=== PATIENT | male | born 1945 | race Caucasian/White ===

== ENCOUNTER 2019-03-30 21:11 | Inpatient (IN) ==
[2019-03-31] MEDS ORDERED: Naloxone 0.4 MG/ML INJ IVP PRN (00:32)
[2019-03-31] MEDS ORDERED: Ondansetron 4 MG/2 ML VIAL IVP PRN (00:32)
[2019-03-31] MEDS ORDERED: *HR* LORazepam 2 MG/ML VIAL IVP PRN (00:34)
[2019-03-31] MEDS ORDERED: 0.9 % Sodium Chloride 1,000 ML IVC SCH ×2 (00:45→06:30)
[2019-03-31] MEDS ORDERED: Dextrose Gel 15 GM/37.5 ML TUBE PO PRN ×2 (01:18)
[2019-03-31] MEDS ORDERED: *HR* Dextrose 50 % in Water (Syg) 50 ML SYRINGE IVP PRN (01:18)
[2019-03-31] MEDS ORDERED: D5% in Water 1,000 ML IVC PRN (01:18)
--- NOTE | 2019-03-31 01:21 | Internal Med History&Physical ---
Date of Encounter: 03/31/19 Time of Encounter: : Internal Medicine - H&P: HPI Chief complaint: Seizure Admitted From: Emergency Dept Plans for Post Hospital Care: Home History of present illness: Mr. Farias is a 73 year old male with history of coronary artery disease, type 2 diabetes who presents with seizure activity. Patient is lethargic on presentation and does not remember much of the event so history is somewhat limited. Other history is obtained from the medical record. Patient states lasting that he remembered was he was going in to the bathroom. He does not remember the events after this and does not remember being in the emergency department. Per the ER documentation the stated that he generally not been feeling well and had been generalized weakness but had no other complaints. He apparently had a seizure while at home. Then again in the ER he had a short episode of seizure-like activity. Upon arrival he is awake and alert although lethargic. Patient does not have the capacity to have CODE STATUS discussion at this time and no family is present so at this time patient will be kept is full code. Past Med Surg Social Fam HX - Past Medical History Medical history: cancer, coronary artery disease, diabetes, GERD, hyperlipidemia, hypertension, myocardial infarction, thyroid disease, TIA, other Additional medical history: thrombocytopenia, CHF, parkinsons, lung nodules Psychiatric history: no psych history - Past Surgical History Surgical History: cholecystectomy Additional surgical history: left kidney removed, triple by pass, skin lesions, carpal tunnel cardiac stents x 7 - Social History Smoking Status: Former smoker Smokeless Tobacco Status: No Alcohol use: none Drug use: none - Additional Family History Additional family history: Patient unable to provide family history due to altered mental status. Internal Medicine - H&P: Meds Atorvastatin Calcium [Lipitor] 80 mg PO DAILY 01/01/18 [History] Carvedilol [Coreg] 25 mg PO BID 01/01/18 [History] Cholecalciferol (Vitamin D3) [Vitamin D3] 50,000 unit PO SA 01/01/18 [History] Docusate [Colace] 100 mg PO DAILY 01/01/18 [History] Finasteride [Proscar] 5 mg PO DAILY 01/01/18 [History] Hydralazine HCl 50 mg PO TID 01/01/18 [History] Nitroglycerin [Nitrostat] 0.4 mg SL AD PRN 01/01/18 [History] [place]-3/Dha/Epa/Fish Oil [Fish Oil 1,000 mg Softgel] 1 cap PO DAILY 01/01/18 [History] Ranitidine HCl [Zantac 75] 75 mg PO HS 01/01/18 [History] Ipratropium/Albuterol Neb [Duoneb] 3 ml IH Q6H PRN 08/26/18 [History] Calcitriol 0.5 mcg PO DAILY 12/27/18 [History] Isosorbide MONOnitrate [Isosorbide Mononitrate ER] 120 mg PO BID 12/27/18 [Histo ry] Levothyroxine Sodium 100 mcg PO DAILY 12/27/18 [History] Linagliptin [Tradjenta] 5 mg PO DAILY 12/27/18 [History] Ranolazine [Ranexa] 1,000 mg PO BID 12/27/18 [History] Sennosides [Senna] 8.6 mg PO BID 12/27/18 [History] Aspirin Enteric Coated [Aspirin EC] 81 mg PO DAILY #60 tablet. 12/29/18 [Rx] Clopidogrel [Plavix] 75 mg PO DAILY #30 tablet 12/29/18 [Rx] Mirtazapine [Remeron] 15 mg PO HS 02/20/19 [History] Ondansetron HCl [Zofran] 4 mg PO PRN PRN 02/20/19 [History] Allergy/AdvReac Type Severity Reaction Status Date / Time latex Allergy Rash Verified 03/23/19 10:01 ROS unobtainable: due to mental status All Systems PM: A 10-system review of systems was performed and is negative for pertinent find ings except as documented above in the HPI. - Constitutional Vitals: Pulse Resp BP Pulse Ox 58 22 150/71 98 03/31/19 00:25 03/31/19 00:25 03/31/19 00:25 03/31/19 00:25 General appearance: Present: no acute distress Exam: Lethargic, answers questions slowly but will answer questions appropriately. - Head Head exam: Present: normocephalic Additional comments: Abrasion to left ear. - Eye Eye exam: Present: EOMI, PERRL - ENT ENT exam: Present: mucous membranes moist, normal oropharynx - Neck Neck exam general surgery: Present: full ROM. Absent: tenderness - Respiratory Respiratory exam: Present: CTAB. Absent: rales, rhonchi, wheezes - Cardiovascular Cardiovascular exam: Present: RRR. Absent: gallop, rubs, systolic murmur - GI/Abdominal GI/Abdominal exam: Present: normal bowel sounds, soft. Absent: distended, tenderness - Extremities Exam Extremities exam: Present: warm. Absent: pedal edema, tenderness - Neurological Exam Neurological exam: Present: alert, altered, CN II-XII intact, reflexes normal, no focal deficits, strengths equal and symetr throughout (4 out of 5 strength globally). Absent: motor sensory deficit, facial droop, speech deficit - Skin Skin exam: Present: dry, intact, warm - Assessment and Plan (1) Seizure Current Visit: No Status: Acute Assessment and plan: Patient presents with seizure activity at home and then again in the emergency department. Currently lethargic and appears postictal. Etiology is unclear as patient has never had seizures before. Head CT is negative. No focal neurologic deficits. ER did discuss the case with neurology who recommended loading the patient with Keppra which we will continue with Keppra 500 mg twice a day. We will use Ativan IV for any seizure activity. Lactic acid noted to be elevated, likely due to seizure activity. No evidence of infection. Recheck lactate. Seizure precautions. Check EEG and brain MRI in the morning. Consult neurology. (2) Thrombocytopenia Current Visit: No Status: Chronic Assessment and plan: Platelets are 64 presentation. This is chronic per patient has been following with hematology as an outpatient for his pancytopenia. Etiology is unclear. Given his low platelets as well as being on aspirin and Plavix patient is at high risk for bleeding and it is unclear if the patient had his head during his seizure episode. No focal deficits noted at this time and initial head CT was negative, will closely monitor the patient for any signs of decompensation and blood repeat CAT scan if there is a clinical change. We will get brain MRI in the morning which will also evaluate for any signs of hemorrhage. (3) Hypothyroidism (acquired) Current Visit: No Status: Chronic Assessment and plan: TSH normal. Restart levothyroxine when mental status improves and does confirmed by pharmacy. (4) CKD (chronic kidney disease) stage 3, GFR 30-59 ml/min Current Visit: No Status: Chronic Assessment and plan: Creatinine 1.99 on presentation which is baseline for patient. Continue monitor creatinine. (5) CAD (coronary artery disease) Current Visit: No Status: Chronic Assessment and plan: No evidence of active chest pain. Continue home medications when confirmed by pharmacy. Qualifiers: Coronary Disease-Associated Artery/Lesion type: bypass graft, autologous vein Associated angina: without angina Qualified Code(s): I25.810 - Atherosclerosis of coronary artery bypass graft(s) without angina pectoris (6) DVT prophylaxis Current Visit: No Status: Acute Assessment and plan: Heparin 5000 units subcutaneous twice a day. - Time Spent With Patient Total time spent is greater than 50% in coordination of care (as documented) at patient's floor/unit and/or counseling patient:
[2019-03-31] MEDS ORDERED: Insulin LISPRO 300 UNITS/3 ML VIAL SQ SCH (06:00)
[2019-03-31] MEDS ORDERED: *HR* Heparin 5,000 UNIT/ML VIAL SQ SCH (06:00)
[2019-03-31 06:10] LABS: Immature Granulocytes % 0.3 % (0-4)
[2019-03-31 06:12] LABS: Basophils % 0.3 %; Eosinophils # 0.1 K/mcL (0.0-0.6); Eosinophils % 1.9 %; Hematocrit 28.8 % (37.5-50.1); Hemoglobin 9.2 g/dL (12.9-16.9); Immature Platelets 2.8 % (1.1-6.1); Lymphocytes % 27.8 %; Mean Corpuscular HGB Conc 31.9 g/dL (31.6-35.5); Mean Corpuscular Hemoglobin 29.2 pg (28.0-33.3); Mean Corpuscular Volume 91.4 fL (83.0-100.0); Mean Platelet Volume 10.4 fL (9.4-12.4); Monocytes # 0.3 K/mcL (0.0-1.3); Monocytes % 8.4 %; Neutrophils # 2.3 K/mcL (1.6-8.9); Red Blood Count 3.15 M/mcL (4.19-5.50); Red Cell Distribution Width 16.1 % (11.5-14.5); Segmented Neutrophils % 61.3 %; White Blood Count 3.7 K/mcL (4.3-11.1)
[2019-03-31 06:25] LABS: Calcium 8.5 mg/dL (8.6-10.3); Magnesium 1.5 mg/dL (1.6-2.6); Platelet Count 60 K/mcL (140-400); Potassium 4.1 mEq/L (3.5-5.1)
[2019-03-31 06:32] LABS: INR 1.2; Prothrombin Time 13.8 Seconds (9.4-12.1)
[2019-03-31 06:36] LABS: Thyroid Stimulating Hormone 0.649 mcIU/mL (0.340-5.600)
[2019-03-31] MEDS: Insulin LISPRO 300 UNITS/3 ML VIAL SQ SCH ×4 (08:46→21:48)
--- NOTE | 2019-03-31 10:47 | Event Note ---
Date of Encounter: 03/31/19 Time of Encounter: 10:45 Patient was examined and seen. Family at bedside. Slight higher blood pressure noticed. His start IV fluid. Close monitoring of blood pressure. Review the lab with magnesium replacement. MRI EEG pending. Consulted neurologist- awaiting for opinion. No active seizure since admission.
--- NOTE | 2019-03-31 17:18 | Neurology - Consult Note ---
Date of Encounter: 03/31/19 Time of Encounter: 13:00 Assessment and Plan (1) Seizure Current Visit: No Status: Acute Patient with multiple medical and neurological problems notably Parkinson disease and CKD, HTN who developed two episodes of shaking like activity, not associated with tongue biting, urinary incontinence and the description of his episodes suggest possible shaking spells of non-epileptic events, although patient was observed to have postictal confusion and drowsiness after the events. The shaking activities involve all extremities but lasted few minutes in duration but the patient was observed to be moaning throughout the event. Fadi rivas also has been feeling ill since the last few months due to ongoing multiple medical conditions. MRI of brain showed no acute intracranial abnormality. At this time, i discussed with the medical team and i would suggest not to initiate antiepileptic therapy at this time. will watch him over night and if he stays stable then would not start antiepilpetic therapy and if he develops seizure like activity again then will consider Depakote for him. If he stays in the hospital we will obtain rou oscar EEG in Tuesday. Please continue medical and supportive care (2) Difficulty walking Current Visit: Yes Status: Acute This appears to be a separate issue that the patient has requested for a neurology consultation. Patient has a diagnosis of Parkinson disease and had been treated with dopa therapy for few years at around 2011 and after. He is no longer on Dopa therapy and per his that his tremors had resolved. Currently i saw no typical features of Parkinson disease, in particular, he does not have rest tremors, initially during the examination he has no muscle rigidity at all although he has been having problems walking this may be related to his general medical conditions such as his CHF, and he does have preserved DTRs and another possibility would cervical disc disease causing myelopathy. Therefore i would recommend obtaining an MRI of cervical spine to evaluate for the possibility. Eventually patient may follow up with me in the next few weeks once his medical conditions improve History of Present Illness Chief complaint: Seizure like activity, generalized weakness HPI: Mr. Farias is a 73 year old male with PMH significant for CKD, hypothyroidism, HTN, GERD, anemia, thrombocytopenia, CAD, CHF, s/p PTCA, Parkinson disease who developed one episode of shaking activity at home and then another one in the ER. Patient is interviewed in the presence of his . states that the patient has been feeling weakness since the last few months. He has been having some stomach upset lately and has been seeing GI specialist and was actually referred to me for evaluation for leg weakness and difficulty walking. He does have history of Parkinson disease for tremors and used to take Sinemet for his tremors, which somehow resolved per his . Patient has been experiencing some leg weakness and he can walk short distances and he uses a walker to walk. Then on the day of admission he developed an episode of arms and legs shaking activity and he was moaning throughout the shaking which lasted about 5 minutes. states that during the shaking episode he was not responding but moaning. She states that she was not sure wh ether this would a seizure or not. Patient has no recollection of the event. No tongue biting or urinary incontinence was reported. Then in the ER he was observed to have another similar episode. It was reported that after the shaking event he was 'postictal'. Patient does not have any tremors. He has significant muscle rigidity. He admits that he feels weak. Initial CT of head showed no acute intracranial abnormaltiy. Subsequently he completed MRI of brain without contrast which showed no acute intracranial abnormality. Past Med Surg Social Fam HX - Past Medical History Medical history: cancer, coronary artery disease, diabetes, GERD, hyperlipidemia, hypertension, myocardial infarction, thyroid disease, TIA, other Additional medical history: thrombocytopenia, CHF, parkinsons, lung nodules Psychiatric history: no psych history - Past Surgical History Surgical History: cholecystectomy Additional surgical history: left kidney removed, triple by pass, skin lesions, carpal tunnel cardiac stents x 7 - Social History Smoking Status: Former smoker Smokeless Tobacco Status: No Alcohol use: none Drug use: none - Family History Mother Age at : 84 (old age) Father Age at : 60 Cause of : heart attack Medications and Allergies Atorvastatin Calcium [Lipitor] 80 mg PO DAILY 01/01/18 [History] Carvedilol [Coreg] 25 mg PO BID 01/01/18 [History] Cholecalciferol (Vitamin D3) [Vitamin D3] 50,000 unit PO SA 01/01/18 [History] Docusate [Colace] 100 mg PO DAILY 01/01/18 [History] Finasteride [Proscar] 5 mg PO DAILY 01/01/18 [History] Hydralazine HCl 50 mg PO TID 01/01/18 [History] Nitroglycerin [Nitrostat] 0.4 mg SL AD PRN 01/01/18 [History] [place]-3/Dha/Epa/Fish Oil [Fish Oil 1,000 mg Softgel] 1 cap PO DAILY 01/01/18 [History] Ranitidine HCl [Zantac 75] 75 mg PO HS 01/01/18 [History] Ipratropium/Albuterol Neb [Duoneb] 3 ml IH Q6H PRN 08/26/18 [History] Calcitriol 0.5 mcg PO DAILY 12/27/18 [History] Isosorbide MONOnitrate [Isosorbide Mononitrate ER] 120 mg PO BID 12/27/18 [History] Levothyroxine Sodium 100 mcg PO DAILY 12/27/18 [History] Linagliptin [Tradjenta] 5 mg PO DAILY 12/27/18 [History] Ranolazine [Ranexa] 1,000 mg PO BID 12/27/18 [History] Sennosides [Senna] 8.6 mg PO BID 12/27/18 [History] Aspirin Enteric Coated [Aspirin EC] 81 mg PO DAILY #60 tablet. 12/29/18 [Rx] Clopidogrel [Plavix] 75 mg PO DAILY #30 tablet 12/29/18 [Rx] Mirtazapine [Remeron] 15 mg PO HS 02/20/19 [History] Ondansetron HCl [Zofran] 4 mg PO PRN PRN 02/20/19 [History] Allergy/AdvReac Type Severity Reaction Status Date / Time latex Allergy Rash Verified 03/23/19 10:01 All Systems: The remainder of the systems were reviewed and are negative - Constitutional Constitutional ROS IM: anorexia (yes), chills (no), daytime sleepiness (no), fatigue (yes), fever(s) (no), frequent falls (no), headache(s) (no), weakness (yes) - Nose, Mouth, Throat Nose, mouth and throat: abnormal hearing (no), dysphagia (no) - Cardiovascular Cardiovascular ROS IM: chest pain (no), chest pain at rest (no), chest pain with activity (no), claudication (no), diaphoresis (no) - Respiratory Respiratory IM: cough (no), dyspnea (no), hemoptysis (no) - Gastrointestinal Gastrointestinal: abdominal pain (yes), change in bowel habits (yes), dyspepsia (yes) - Genitourinary Genitourinary ROS: difficulty urinating (no), difficulty voiding (no) - Musculoskeletal Musculoskeletal ROS IM: abnormal gait (yes) - Neurological Neurological ROS: abnormal gait (yes, uses a cane to walk. ), abnormal hearing (no), abnormal movements (no), abnormal speech (no), behavioral changes (no), headache(s) (no) - Psychiatric Psychiatric general PM: auditory hallucinations (no) Physical Examination - Vital Signs Vital Signs: Initial Vital Signs Pulse Resp BP Pulse Ox 58 22 150/71 98 03/31/19 00:25 03/31/19 00:25 03/31/19 00:25 03/31/19 00:25 - Constitutional General appearance: chronically ill - Neurologic Sensorimotor examination: other (Grossly intact) Motor examination - right side: 4/5: deltoids, biceps, triceps, wrist flexion, wrist extension, fire protection equipment technician, hip flexors, tibialis Anterior, quadriceps, toe extension (EHL), plantarflexion Motor examination - left side: 4/5: deltoids, biceps, triceps, wrist flexion, wrist extension, hip flexors, fire protection equipment technician, quadriceps, tibialis Anterior, toe extension (EHL), plantarflexion Detailed sensory examination: other (Grossly intact) Posture: other (None) Reflex and gait examination: other (Gait not tested due to patient being rather weak) Reflexes: Biceps: 2+, Triceps: 2+, Brachioradialis: 2+, Patella: 2+, Achilles: 2+ Mental Status Examination: awake, alert, oriented to person, oriented to place, oriented to time, follows commands appropriately, answers questions appropriately, no agnosia, no aphasia, no aproxia Cranial nerve examination: PERRL, EOMI, visual de la fuente intact, corneal reflexes brisk symmetrically, sensory to face intact, mastication intact, no facial asymmetry is present, no dysarthria, hearing is intact symmetrically, soft palate elevates bilaterally upon phonation, gag reflex intact, flexes SCM and trapezius muscles symmetrically with full power, tongue protrudes midline, no atrophy or facial fasiculations present Results - Laboratory Findings CBC and BMP: 03/31/19 05:44 03/31/19 05:44 Abnormal lab findings: Abnormal lab results WBC 3.7 K/mcL (4.3-11.1) L 03/31/19 05:44 RBC 3.15 M/mcL (4.19-5.50) L 03/31/19 05:44 Hgb 9.2 g/dL (12.9-16.9) L 03/31/19 05:44 Hct 28.8 % (37.5-50.1) L 03/31/19 05:44 RDW 16.1 % (11.5-14.5) H 03/31/19 05:44 Plt Count 60 K/mcL (140-400) L 03/31/19 05:44 PT 13.8 Seconds (9.4-12.1) H 03/31/19 05:44 Sodium 133 mEq/L (136-145) L 03/31/19 05:44 Carbon Dioxide 22 mEq/L (23-29) L 03/31/19 05:44 1.75 mg/dL (0.70-1.30) H 03/31/19 05:44 Est GFR ( Amer) 47 (> 60) L 03/31/19 05:44 Est GFR (Non-Af Amer) 39 (> 60) L 03/31/19 05:44 POC Glucose 121 mg/dL (70-99) H 03/31/19 00:07 Calcium 8.5 mg/dL (8.6-10.3) L 03/31/19 05:44 Magnesium 1.5 mg/dL (1.6-2.6) L 03/31/19 05:44 - Diagnostic Findings Additional findings: EXAMINATION: MRI OF THE BRAIN WITHOUT CONTRAST 03/31/2019 10:33 am TECHNIQUE: Multiplanar multisequence MRI of the brain was performed without the administration of intravenous contrast. COMPARISON: None HISTORY: ORDERING SYSTEM PROVIDED HISTORY: Seizure FINDINGS: INTRACRANIAL STRUCTURES/VENTRICLES: There is no acute infarct. No mass effect or midline shift. No evidence of an acute intracranial hemorrhage. The ventricles and sulci are normal in size and configuration. The sellar/suprasellar regions appear unremarkable. The normal signal voids within the major intracranial vessels appear maintained. Areas of white matter abnormality are nonspecific but commonly attributed to chronic microvascular ischemia. The hippocampi have normal signal intensity and morphology. ORBITS: The visualized portion of the orbits demonstrate no acute abnormality. SINUSES: The visualized paranasal sinuses and mastoid air cells are well aerated. BONES/SOFT TISSUES: The bone marrow signal intensity appears normal. The soft tissues demonstrate no acute abnormality. MR/MR head/brain wo con IMPRESSION: No structural brain abnormality. D/ / 03/31/2019 10:57:35 Brad Fuller MD / [email or web address] Interpreting Provider: Brad Fuller MD Consult Discharge Plan - Plan Referrals: Sameer Frank, PLUSH BRUSHER [Primary Care Provider] -
[2019-04-01 03:35] LABS: Basophils % 0.4 %; Eosinophils # 0.1 K/mcL (0.0-0.6); Eosinophils % 3.4 %; Hematocrit 26.7 % (37.5-50.1); Hemoglobin 8.8 g/dL (12.9-16.9); Immature Platelets 2.3 % (1.1-6.1); Lymphocytes # 1.1 K/mcL (0.6-4.6); Mean Corpuscular Hemoglobin 29.1 pg (28.0-33.3); Mean Corpuscular Volume 88.4 fL (83.0-100.0); Mean Platelet Volume 10.7 fL (9.4-12.4); Monocytes # 0.2 K/mcL (0.0-1.3); Monocytes % 8.3 %; Neutrophils # 1.2 K/mcL (1.6-8.9); Red Blood Count 3.02 M/mcL (4.19-5.50); Red Cell Distribution Width 16.1 % (11.5-14.5); Segmented Neutrophils % 45.9 %; White Blood Count 2.6 K/mcL (4.3-11.1)
[2019-04-01 03:37] LABS: Platelet Count 57 K/mcL (140-400)
[2019-04-01 03:52] LABS: Calcium 8.1 mg/dL (8.6-10.3); Potassium 3.9 mEq/L (3.5-5.1)
[2019-04-01] MEDS: Insulin LISPRO 300 UNITS/3 ML VIAL SQ SCH ×4 (07:52→23:24)
[2019-04-01] MEDS ORDERED: Ondansetron ODT 4 MG TAB.RAPDIS PO PRN (12:46)
[2019-04-01] MEDS ORDERED: Ipratropium/Albuterol Neb 3 ML IH PRN (12:46)
[2019-04-01] MEDS ORDERED: Nitroglycerin 0.4 MG TAB.SUBL SL PRN (12:46)
--- NOTE | 2019-04-01 12:47 | Internal Med Progress Note ---
Hospitalist Progress Note - Encounter Date of Encounter: 04/01/19 Time of Encounter: 12:44 - Subjective Interval History: No active seizure since admission. No acute event overnight. Patient complained of generalized weakness and not able to ambulate. Review the lab with trending down white count hemoglobin and platelet. No active bleeding. Reviewed the vitals Patient denies vomiting headache dizziness chest pain short of breath diarrhea urinary complaint - Exam Vitals: Temp Pulse Resp BP Pulse Ox 98.1 F 56 18 162/75 98 04/01/19 07:30 04/01/19 07:30 04/01/19 07:30 04/01/19 07:30 04/01/19 07:30 Exam: General appearance: No acute distress, A&O X 2 Head exam: Atraumatic Eye exam: EOMI, PERRLA ENT exam: Moist oral mucosa Neck nontender, supple Respiratory exam: Clear to auscultation bilaterally Cardiovascular exam: Regular rate and rhythm, no systolic murmur Abdominal exam: Soft, nontender, nondistended, positive bowel sounds Extremities exam: No calf tenderness, no pedal edema Present: Skin-no rash, warm, dry, intact Neurological exam: CN II-XII intact, no focal deficits. No facial droop. slow speech. Lower extremity motor 4 x 5 bilateral. Upper extremity 5 x 5 bilateral - Assessment and Plan (1) Seizure Current Visit: No Status: Acute Assessment and Plan: Patient presents with seizure like activity at home and then again in the emergency department. patient has never had seizures before. Head CT and MRI brain is negative. No focal neurologic deficits. Got evaluated by neurologist who did not advise to initiate antiepileptic therapy at this time but continue seizure precaution and watch overnight. The patient developed seizure-like activity away and then will consider Depakote. Plan for EEG tomorrow morning. Stopped Keppra-concern for pancytopenia. Initial Lactic acid noted to be elevated, likely due to seizure activity. No evidence of infection. Recheck lactate normal. Seizure precautions. (2) Pancytopenia Current Visit: Yes Status: Acute Assessment and Plan: Worsening. Keppra can also cause pancytopenia therefore will hold Keppra- antiseizure is also not advised by his neurologist. No active seizure since admission. Will repeat CBC tomorrow and if further worsening then will consult surgery technician. (3) Hypothyroidism (acquired) Current Visit: No Status: Chronic Assessment and Plan: TSH normal. Started home medicine (4) CKD (chronic kidney disease) stage 3, GFR 30-59 ml/min Current Visit: No Status: Chronic Assessment and Plan: Acute on CK D3. Improving creatinine level. Avoid nephrotoxic drug. Monitor BMP. Follow account auditor on OPD basis (5) CAD (coronary artery disease) Current Visit: No Status: Chronic Assessment and Plan: No evidence of active chest pain. Continue home medicine. Beta bhavik on hold due to low heart rate. Plavix on hold now due to low platelet. Continue aspirin statin nitroglycerin (6) Thrombocytopenia Current Visit: No Status: Chronic Assessment and Plan: Platelets are 64 presentation. This is chronic per patient has been following with hematology as an outpatient for his pancytopenia. Etiology is unclear. Given his low platelets as well as being on aspirin and Plavix patient is at high risk for bleeding . Plavix on hold but continue aspirin. If further troponin platelet then consult surgery technician about opinion for anti-platelet medication. (7) Generalized weakness Current Visit: Yes Status: Acute Assessment and Plan: Most likely due to deconditioning of the body. Difficulty walking but no focal neurological deficit. As per neurologist note,Patient had a diagnosis of Parkinson disease and had been treated with dopa therapy for few years at around 2011 and after. He is no longer on Dopa therapy and per his that his tremors had resolved. Neurologist not convinced for Parkinson disease as active diagnosis. MRI cervical spine ordered to rule out myelopathy. PTOT consultation. yard warehouse worker consultation for discharge plan (8) HTN (hypertension) Current Visit: Yes Status: Acute Assessment and Plan: High blood pressure but low heart rate. Started home medicine hydralazine. Will hold beta bhavik for now. Continue to monitor blood pressure. (9) DVT prophylaxis Current Visit: No Status: Acute Assessment and Plan: With his start heparin due to low platelet. SCDs - Time Spent with Patient Total time spent is greater than 50% in coordination of care (as documented) at patient's floor/unit and/or counseling patient: 25 - 35 minutes Plan of Care Discussed with: patient Internal Medicine: Result - Labs CBC & Chem 7: 04/01/19 02:56 04/01/19 02:56 Labs: Short CBC 04/01/19 Range/Units 02:56 WBC 2.6 L (4.3-11.1) K/mcL Hgb 8.8 L (12.9-16.9) g/dL Hct 26.7 L (37.5-50.1) % Plt Count 57 L (140-400) K/mcL Neutrophils # 1.2 L (1.6-8.9) K/mcL BMP 04/01/19 02:56 Sodium 135 L Potassium 3.9 Chloride 106 Carbon Dioxide 21 L BUN 21 Creatinine 1.66 H Glucose 102 Calcium 8.1 L - ABG Interpretation ABG results: PT/INR, D-dimer PT 13.8 Seconds (9.4-12.1) H 03/31/19 05:44 - Impressions Impressions Cervical Spine MRI 03/31/19 14:39 IMPRESSION: 1. Degenerative changes contribute to minimal spinal canal stenosis at C3-C4. No spinal canal stenosis at the remaining levels. 2. Degenerative changes contribute to multilevel neural foraminal narrowing as described above. 3. No evidence of spondylolisthesis. 4. There is suggestion of partial loss of normal signal void within the right vertebral artery, which can be seen with slow flow versus occlusion. D/ / Eligio Palacio MD / Eligio Palacio MD Interpreting Provider: Eligio Palacio MD - VTE Documentation of Mechanical Device: Intermittent pneumatic compression device Consult Discharge Plan - Plan Referrals: Sameer Frank, [facility]ACH WORKER [Primary Care Provider] - (5) CAD (coronary artery disease) Qualifiers: Coronary Disease-Associated Artery/Lesion type: bypass graft, autologous vein Associated angina: without angina Qualified Code(s): I25.810 - Atherosclerosis of coronary artery bypass graft(s) without angina pectoris (8) HTN (hypertension) Qualifiers: Hypertension type: unspecified Qualified Code(s): I10 - Essential (primary) hypertension
[2019-04-01] MEDS: hydrALAZINE 25 MG TABLET PO SCH ×2 (15:14→20:58)
--- NOTE | 2019-04-01 16:39 | Neurology Progress Note ---
Date of Encounter: 04/01/19 Time of Encounter: 15:00 Assessment and Plan (1) Seizure Current Visit: No Status: Acute Patient with multiple medical and neurological problems notably Parkinson disease and CKD, HTN who developed two episodes of shaking like activity, not associated with tongue biting, urinary incontinence and the description of his episodes suggest possible shaking spells of non-epileptic events, although patient was observed to have postictal confusion and drowsiness after the events. The shaking activities involve all extremities but lasted few minutes in duration but the patient was observed to be moaning throughout the event. Fadi rivas also has been feeling ill since the last few months due to ongoing multiple medical conditions. MRI of brain showed no acute intracranial abnormality. At this time, i discussed with the medical team and i would suggest not to initiate antiepileptic therapy at this time. Apparently he is doing better with medical and supportive and it seems that his clinical status correlates with improvement of renal function. Daughter mentions that the patient have been having fluctuating functions, weakness and confusion usually last few days before improvement and i suspect the symptoms are likely related to medical encephalopathy. As discussed previously if he develops no recurrent seizure like activity i would recommend no antiepileptic therapy If he stays here until tomorrow then i would obtain a routine EEG in the morning. Please continue medical and supportive care (2) Difficulty walking Current Visit: Yes Status: Acute MRI of cervical spine completed and reviewed and it showed no spinal cord pathology. Patient's balance difficulty likely multi factorial in nature. He certainly has no features of typical parkinson disease although he had been taking sinemet in the past. He had tremors but he no longer having them now. Subjective Principal diagnosis: altered mental status and seizure like activity Interval history: Patient seen and examined. He is interviewed in the presence of his and daughter. Both were present when I saw this patient at around 2:30pm. The patient looks much better and had a big smile on his face. He states that he is feeling better and reports no significant neurological discomforts. His and daughter agrees that he is looking much better. He completed MRI of cervical spine which showed no spinal cord pathology. He has no tremors and no muscle rigidity. Daughter went on stating the patient has been like this, like he would be feeling week and confused for few days and then improve. Apparently this has been going since the last few months. His renal function is improved today, in terms of creatinine level. Reports no recurrent seizure overnight. Objective - Constitutional Vitals: Temp Pulse Resp BP Pulse Ox 98.1 F 56 18 162/75 98 04/01/19 07:30 04/01/19 07:30 04/01/19 07:30 04/01/19 07:30 04/01/19 07:30 - Neurological Exam Sensorimotor examination: Present: other (Grossly intact) Motor Examination: Present: grossly full strength in all extremities (He has no tremors and no muscle rigidity. ) Motor examination - right side: 5/5: deltoids, biceps, triceps, wrist flexion, wrist extension, manager data warehousing, hip flexors, tibialis Anterior, quadriceps, toe extension (EHL), plantarflexion Motor examination - left side: 5/5: deltoids, biceps, triceps, wrist flexion, wrist extension, hip flexors, manager data warehousing, quadriceps, tibialis Anterior, toe extension (EHL), plantarflexion Sensation intact: Present: other (Grossly intact) Posture: Present: other (None) Reflex and gait examination: other (Gait not tested) Reflexes: Biceps: 2+, Triceps: 2+, Brachioradialis: 2+, Patella: 2+, Achilles: 2+ Mental Status Examination: Present: awake, alert, oriented to person, oriented to place, oriented to time, follows commands appropriately, answers questions appropriately, no agnosia, no aphasia, no aproxia Cranial nerve examination: Present: PERRL, EOMI, visual de la fuente intact, corneal reflexes brisk symmetrically, sensory to face intact, mastication intact, no facial asymmetry is present, no dysarthria, hearing is intact symmetrically, soft palate elevates bilaterally upon phonation, gag reflex intact, flexes SCM and trapezius muscles symmetrically with full power, tongue protrudes midline, no atrophy or facial fasiculations present - VTE Documentation of Mechanical Device: Intermittent pneumatic compression device Results - Laboratory Findings CBC and BMP: 04/01/19 02:56 04/01/19 02:56 Abnormal lab findings: Abnormal lab results WBC 2.6 K/mcL (4.3-11.1) L 04/01/19 02:56 RBC 3.02 M/mcL (4.19-5.50) L 04/01/19 02:56 Hgb 8.8 g/dL (12.9-16.9) L 04/01/19 02:56 Hct 26.7 % (37.5-50.1) L 04/01/19 02:56 RDW 16.1 % (11.5-14.5) H 04/01/19 02:56 Plt Count 57 K/mcL (140-400) L 04/01/19 02:56 1.2 K/mcL (1.6-8.9) L 04/01/19 02:56 PT 13.8 Seconds (9.4-12.1) H 03/31/19 05:44 Sodium 135 mEq/L (136-145) L 04/01/19 02:56 Carbon Dioxide 21 mEq/L (23-29) L 04/01/19 02:56 1.66 mg/dL (0.70-1.30) H 04/01/19 02:56 Est GFR ( Amer) 50 (> 60) L 04/01/19 02:56 Est GFR (Non-Af Amer) 41 (> 60) L 04/01/19 02:56 POC Glucose 126 mg/dL (70-99) H 03/31/19 20:37 Calcium 8.1 mg/dL (8.6-10.3) L 04/01/19 02:56 Magnesium 1.5 mg/dL (1.6-2.6) L 03/31/19 05:44 Consult Discharge Plan - Plan Referrals: Sameer Frank, MATE RELIEF [Primary Care Provider] -
[2019-04-01] MEDS: Isosorbide MONOnitrate (24 HR) 60 MG TAB.ER.24H PO SCH (20:58)
[2019-04-01] MEDS: Sennosides 8.6 MG TABLET PO SCH (20:59)
[2019-04-01] MEDS: Ranolazine 500 MG TAB.ER.12H PO SCH (20:59)
[2019-04-01] MEDS ORDERED: Famotidine 20 MG TABLET PO SCH (21:00)
[2019-04-02] MEDS: Insulin LISPRO 300 UNITS/3 ML VIAL SQ SCH ×3 (08:58→17:04)
[2019-04-02] MEDS ORDERED: Finasteride 5 MG TABLET PO SCH (09:00)
[2019-04-02] MEDS ORDERED: Aspirin Enteric Coated 81 MG Tablet PO SCH (09:00)
[2019-04-02] MEDS: Isosorbide MONOnitrate (24 HR) 60 MG TAB.ER.24H PO SCH (09:02)
[2019-04-02] MEDS: hydrALAZINE 25 MG TABLET PO SCH ×2 (09:02→17:04)
[2019-04-02] MEDS: Ranolazine 500 MG TAB.ER.12H PO SCH (09:02)
[2019-04-02] MEDS: Sennosides 8.6 MG TABLET PO SCH (09:02)
[2019-04-02 09:35] LABS: Basophils % 0.4 %; Eosinophils # 0.1 K/mcL (0.0-0.6); Eosinophils % 3.3 %; Hematocrit 28.5 % (37.5-50.1); Hemoglobin 9.4 g/dL (12.9-16.9); Immature Granulocytes % 0.4 % (0-4); Lymphocytes # 1.2 K/mcL (0.6-4.6); Lymphocytes % 49.4 %; Mean Corpuscular Hemoglobin 29.4 pg (28.0-33.3); Mean Corpuscular Volume 89.1 fL (83.0-100.0); Mean Platelet Volume 10.5 fL (9.4-12.4); Monocytes # 0.2 K/mcL (0.0-1.3); Monocytes % 9.2 %; Neutrophils # 0.9 K/mcL (1.6-8.9); Segmented Neutrophils % 37.3 %; White Blood Count 2.4 K/mcL (4.3-11.1)
[2019-04-02 09:37] LABS: Platelet Count 67 K/mcL (140-400)
[2019-04-02 10:05] LABS: Calcium 8.7 mg/dL (8.6-10.3); Potassium 4.3 mEq/L (3.5-5.1)
--- NOTE | 2019-04-02 12:02 | EEG/EMG/Oth Biometrics Report ---
EEG Procedure Report Date of procedure: 04/02/19 EEG Procedure: Routine EEG Procedure Note: This EEG was acquired with standard international 10-20 system with EKG recording. The background EEG activity was characterized by the presence of posterior dominant alpha rhythm with the best frequency up to 8.5 Hz. The background activity was reactive to eye openings. Sleep stages were characterized by the presence of background fragmentation, vertex waves, K complexes, and sleep spindles. There are no electrographic seizures identified during this tracing. There are no epileptiform discharges or focal slowing noted during this recording. Photic stimulation produced no abnormalities. Hyperventilation procedure was not performed. EKG tracing showed normal sinus rhythm. Impression: This is essentially a normal awake and asleep EEG. Clinical Correlation: Normal EEGs, however, do not exclude epilepsy. Clinical correlation advised.
--- NOTE | 2019-04-02 12:59 | Discharge Summary ---
- NOTES TO OUTPATIENT PROVIDER Notes to Outpatient Provider: Needs outpatient PT/OT referral Date of Encounter: 04/02/19 Time of Encounter: 12:56 - Discharge Diagnosis (1) Seizure Priority: Primary Status: Acute Hospital course: Dear Doctors, I recently had the opportunity to care for this patient during their recent hospital stay at [facility]. Dino Farias is a 73 M w hx CAD, DM2, CKD3b, who presented at time of admission with seizure-like episode witnessed per his , no incontinence and was apparently moaning but pt had LOC, rhythmic bilateral shaking, and post-ictal period, and upon presentation lactate was elevated. Then again in the ER he had a short episode of seizure-like activity. States this has happened in the past and found to be hypoglycemic, however he was euglycemic on admission. Sodium mildly low at 133. In the hospital, pt underwent neurologic consultation. EEG was unremarkable. Neuro felt this was unlikely to represent a seizure and thus no AEDs were initiated. Glucose remained normal during admission, with no further seizure- like episodes. PT/OT saw patient and felt he would benefit from outpatient PT/OT. Pt will follow up Neuro in clinic. Dx: Possible seizure, lactic acidosis, hyponatremia Pertinent tests/consults: Neuro consult, EEG Follow up: PCP and Neuro, needs outpatient PT/OT Tests pending: none Med changes: - holding coreg as HR 50-60s - holding plavix due to pancytopenia (specifically thrombocytopenia Plt 50-60s) Mental status: awake, fully oriented Code status: Fabrication Inspector spent on discharge: 35 minutes It has been my pleasure participating in this patient's care. Please contact me with any questions or concerns regarding their hospital stay. Sincerely, Helder Trevino MD - Discharge Medications Prescriptions: Continued Calcitriol 0.5 mcg PO DAILY Isosorbide MONOnitrate [Isosorbide Mononitrate ER] 120 mg PO BID Levothyroxine Sodium 100 mcg PO DAILY Linagliptin [Tradjenta] 5 mg PO DAILY Ranolazine [Ranexa] 1,000 mg PO BID Sennosides [Senna] 8.6 mg PO BID Aspirin Enteric Coated [Aspirin EC] 81 mg PO DAILY #60 tablet. Mirtazapine [Remeron] 15 mg PO QAM Ondansetron HCl [Zofran] 4 mg PO Q6HR PRN PRN Reason: Nausea Pantoprazole Sodium 40 mg PO DAILY Nitroglycerin [Nitrostat] 0.4 mg SL AD PRN PRN Reason: Chest Pain Cholecalciferol (Vitamin D3) [Vitamin D3] 50,000 unit PO SA Atorvastatin Calcium [Lipitor] 80 mg PO DAILY Ruby-3/Dha/Epa/Fish Oil [Fish Oil 1,000 mg Softgel] 1 cap PO DAILY Hydralazine HCl 50 mg PO TID Finasteride [Proscar] 5 mg PO DAILY Docusate [Colace] 100 mg PO DAILY Ipratropium/Albuterol Neb [Duoneb] 3 ml IH Q6H PRN PRN Reason: Shortness Of Breath Discontinued Clopidogrel [Plavix] 75 mg PO DAILY #30 tablet Carvedilol [Coreg] 25 mg PO BID Home Medications: Atorvastatin Calcium [Lipitor] 80 mg PO DAILY 01/01/18 [History] Cholecalciferol (Vitamin D3) [Vitamin D3] 50,000 unit PO SA 01/01/18 [History] Docusate [Colace] 100 mg PO DAILY 01/01/18 [History] Finasteride [Proscar] 5 mg PO DAILY 01/01/18 [History] Hydralazine HCl 50 mg PO TID 01/01/18 [History] Nitroglycerin [Nitrostat] 0.4 mg SL AD PRN 01/01/18 [History] Ruby-3/Dha/Epa/Fish Oil [Fish Oil 1,000 mg Softgel] 1 cap PO DAILY 01/01/18 [History] Ipratropium/Albuterol Neb [Duoneb] 3 ml IH Q6H PRN 08/26/18 [History] Calcitriol 0.5 mcg PO DAILY 12/27/18 [History] Isosorbide MONOnitrate [Isosorbide Mononitrate ER] 120 mg PO BID 12/27/18 [History] Levothyroxine Sodium 100 mcg PO DAILY 12/27/18 [History] Linagliptin [Tradjenta] 5 mg PO DAILY 12/27/18 [History] Ranolazine [Ranexa] 1,000 mg PO BID 12/27/18 [History] Sennosides [Senna] 8.6 mg PO BID 12/27/18 [History] Aspirin Enteric Coated [Aspirin EC] 81 mg PO DAILY #60 tablet. 12/29/18 [Rx] Mirtazapine [Remeron] 15 mg PO QAM 02/20/19 [History] Ondansetron HCl [Zofran] 4 mg PO Q6HR PRN 02/20/19 [History] Pantoprazole Sodium 40 mg PO DAILY 04/01/19 [History] Allergies/Adverse Reactions: Allergy/AdvReac Type Severity Reaction Status Date / Time latex Allergy Rash Verified 04/01/19 16:55 Date of admission: 04/01/19 13:07 Primary care physician: Sameer Frank CNP Consults: 03/31/19 00:34 Consult to Neurology [CONS] Routine Consulting Provider: [facility] Reason for Consult: New onset seizure Call Completed: No 03/31/19 18:30 Consult to Occupational Therapy [CONS] Routine Comment: Evaluate, develop and implement POC Reason for Consult: Generalized weakness Does patient have active BEDREST order?: No Is patient medically & hemodynamically stable?: Yes Patient assessed for mobility or mobilized this visit?: No Consult to Physical Therapy [CONS] Routine Comment: Evaluate, develop and implement POC Reason for Consult: Generalized weakness Does patient have active BEDREST order?: No Is patient medically & hemodynamically stable?: Yes Patient assessed for mobility or mobilized this visit?: No Consult to Station Examiner [CONS] Routine Reason for SW Consult: Discharge plan 04/02/19 10:15 Consult to Interpret Exam [CONS] Routine Consulting Provider: Madeleine Marie Consult to Interpret Exam: Interpret EEG - Constitutional Vitals: Temp Pulse Resp BP Pulse Ox 98.1 F 60 17 120/62 97 04/02/19 04:17 04/02/19 11:49 04/02/19 11:49 04/02/19 11:49 04/02/19 11:49 General appearance: Present: no acute distress Exam: General: NAD, good eye contact, well appearing Thoracic: Normal breath sounds b/l, no wheezing or crackles Cardio: Normal S1 and S2, regular rate and rhythm Abdomen: Soft, nontender Extremities: Warm, well perfused. DP pulses 2+ b/l. No edema. Skin: Intact. No rashes, bruises, or ulcers Neuro: Awake, fully oriented. Speech fluent - Patient Status Disposition: Home, Self-Care Condition: Fair Functional capacity at discharge: uses cane/walker Overall status at discharge: patient is progressing back to baseline - Discharge Instructions Follow Up With: Sameer Frank CNP [Primary Care Provider] - (Please call tomorrow to make appt for 5-7 days after discharge.) Madeleine Marie MD [Partnered Physician] - (Please call tomorrow to make appt 3-4 weeks after d/c.) Additional Instructions: Please have Dr. Frank schedule your outpatient PT/OT. - Diet and Activity Activity: resume usual activities as tolerated Diet: advance to your usual diet - VTE Documentation of Mechanical Device: Intermittent pneumatic compression device
[2019-04-02 16:07] VITALS: BP 128/70
[2019-04-07] MEDS ORDERED: Cholecalciferol (D-3) 1,000 UNIT TABLET PO SCH (12:46)
== END 2019-04-02 18:55 | disposition home or self-care (01) | DRG 101 ==
LOC: 2NENU → SUATTDRO 04-01 13:07
PROVIDERS: ADMIT Internal Medicine; ATTEND Internal Medicine

== ENCOUNTER 2019-06-04 11:43 | Observation (INO) ==
[2019-06-04] MEDS ORDERED: Naloxone 0.4 MG/ML INJ IVP PRN (13:35)
--- NOTE | 2019-06-04 13:41 | Internal Med History&Physical ---
Date of Encounter: 06/04/19 Time of Encounter: 15:00 Internal Medicine - H&P: HPI Chief complaint: Witnessed seizures today History of present illness: Mr. Farias is a 74 year old male with pmh of coronary artery disease, diabetes type 2, dyslipidemia, hypertension presenting with complaints of witnessed seizures today. Patient is extremely lethargic on assessment but protecting his airways. He is not able to provide any history but is arousable and follows commands. Spoke with ER at [facility], per his , patient was having staring spells this am and was not responding when she spoke with him and she also noted a new left sided facial droop and that's why she took him to the ER. ER physician reports he had two episode of jerky movements suspicious for seizure activity that lasted about 30 secndas. No antiepileptic meds wee adinistered. EMS reports he also had an other episode of seizure like activity en route to the hospital. He had a CT head at [facility] showing no acute abnormalities. He is being admitted for further management Past Med Surg Social Fam HX - Past Medical History Medical history: cancer, coronary artery disease, diabetes, GERD, hyperlipidemia, hypertension, myocardial infarction, seizures, thyroid disease, TIA, other Additional medical history: thrombocytopenia, CHF, parkinsons, lung nodules Psychiatric history: no psych history - Past Surgical History Surgical History: cholecystectomy Additional surgical history: left kidney removed, triple bypass, skin lesions, carpal tunnel, cardiac stents x 7 - Social History Smoking Status: Former smoker Smokeless Tobacco Status: No Alcohol use: none Drug use: none Internal Medicine - H&P: Meds Atorvastatin Calcium [Lipitor] 80 mg PO DAILY 01/01/18 [History] Cholecalciferol (Vitamin D3) [Vitamin D3] 50,000 unit PO SA 01/01/18 [History] Docusate [Colace] 100 mg PO DAILY 01/01/18 [History] Finasteride [Proscar] 5 mg PO DAILY 01/01/18 [History] Hydralazine HCl 50 mg PO TID 01/01/18 [History] Nitroglycerin [Nitrostat] 0.4 mg SL AD PRN 01/01/18 [History] Isosorbide MONOnitrate [Isosorbide Mononitrate ER] 120 mg PO BID 12/27/18 [History] Levothyroxine Sodium 100 mcg PO DAILY 12/27/18 [History] Linagliptin [Tradjenta] 5 mg PO DAILY 12/27/18 [History] Ranolazine [Ranexa] 1,000 mg PO BID 12/27/18 [History] Sennosides [Senna] 8.6 mg PO BID 12/27/18 [History] Aspirin Enteric Coated [Aspirin EC] 81 mg PO DAILY #60 tablet. 12/29/18 [Rx] Mirtazapine [Remeron] 7.5 mg PO HS 02/20/19 [History] Calcitriol [Rocaltrol] 0.25 mcg PO DAILY 06/04/19 [History] [place]-3/Dha/Epa/Fish Oil [Fish Oil 1,000 mg Softgel] 1 each PO DAILY 06/04/19 [History] Pantoprazole Sodium [Protonix] 40 mg PO HS 06/04/19 [History] Sertraline [Zoloft] 50 mg PO DAILY 06/04/19 [History] Allergy/AdvReac Type Severity Reaction Status Date / Time latex Allergy Rash Verified 06/04/19 10:43 ROS unobtainable: due to mental status All Systems PM: A 10-system review of systems was performed and is negative for pertinent findings except as documented above in the HPI. - Constitutional Exam: Extremely drowsy but arousable - Head Head exam: Present: atraumatic, normocephalic - Eye Eye exam: Present: PERRL, conjuntiva pink, sclera anicteric Pupils: Present: PERRL - Neck Neck exam general surgery: Present: supple, trachea midline. Absent: lymphadenopathy - Respiratory Respiratory exam: Present: CTAB. Absent: accessory muscle use, rales, rhonchi, wheezes - Cardiovascular Cardiovascular exam: Present: RRR, +S1, +S2. Absent: diastolic murmur, gallop, rubs, systolic murmur - GI/Abdominal GI/Abdominal exam: Present: normal bowel sounds, soft, no peritoneal signs. Absent: distended, tenderness - Extremities Exam Extremities exam: Present: warm, radial pulses palpable and symmetrical. Absent: calf tenderness, cyanotic, pedal edema - Neurological Exam Neurological exam: Present: CN II-XII intact, oriented X3, no focal deficits. Absent: pronater drift, facial droop, speech deficit - Skin Skin exam: Present: dry, intact - Assessment and Plan (1) Seizure Current Visit: Yes Status: Acute Assessment and plan: Multiple witnessed episodes of seizure like activity today with jerky movements and postictal state No antiepileptics administered at [facility]. Will load with IV keppra, Obtain MRI brain Neurology consulted and appreciate recs. Start on ativan prn (2) Lactic acidosis Current Visit: Yes Status: Acute Assessment and plan: Possibly secondary to seizures and muscle hypoxia. Low suspicion for sepsis Repeat lactate was 2.4. Will hydrate gently in light of mildly depressed EF (3) CAD (coronary artery disease) Current Visit: Yes Status: Chronic Assessment and plan: Continue aspirin and statin Qualifiers: Coronary Disease-Associated Artery/Lesion type: bypass graft, autologous vein Associated angina: without angina Qualified Code(s): I25.810 - Atherosclerosis of coronary artery bypass graft(s) without angina pectoris (4) Diabetes Current Visit: Yes Status: Chronic Assessment and plan: Continue insulin and monitor fingersticks Qualifiers: Diabetes mellitus type: type 2 Diabetes mellitus terminal supervisor insulin use: without terminal supervisor use Diabetes mellitus complication status: without complication Qualified Code(s): E11.9 - Type 2 diabetes mellitus without co mplications (5) Hypothyroidism (acquired) Current Visit: Yes Status: Chronic Assessment and plan: Continue levothyroxine (6) CKD (chronic kidney disease) stage 3, GFR 30-59 ml/min Current Visit: Yes Status: Chronic Assessment and plan: Gentle hydration and monitor creatinine (7) DVT prophylaxis Current Visit: Yes Status: Acute Assessment and plan: Heparin sc - Time Spent With Patient Total time spent is greater than 50% in coordination of care (as documented) at patient's floor/unit and/or counseling patient:
[2019-06-04] MEDS ORDERED: levETIRAcetam 1,000 MG in 0.9 % Sodium Chloride 100 ML IVPB ONE (13:47)
[2019-06-04] MEDS ORDERED: Nitroglycerin 0.4 MG TAB.SUBL SL PRN (14:24)
--- NOTE | 2019-06-04 14:44 | Neurology - Consult Note ---
<Tyrell Perez - Last Filed: 06/04/19 14:40> Date of Encounter: 06/04/19 Time of Encounter: 14:40 Assessment and Plan (1) Seizure Current Visit: Yes Status: Acute Neurology consult with concerns for seizures Was witnessed to have staring events 2 then found to have tonic-clonic seizure activity today Has had recent similar seizure-like activity with negative workup including negative MRI brain and EEG He is currently not on antiepileptic drugs Also of note the patient is having some left eye ptosis and what appears to be left facial droop. Otherwise he is drowsy and does not follow commands or participate in exam. However, drowsiness may not be true postictal state as patient received 2mg Versed and this may be complicating clinical picture at this time. At this juncture we will continue to evaluate for seizures Given left facial droop and ptosis who also evaluate for acute cerebral ischemia PLAN: MRI brain EEG Continue aspirin and statin drugs Neurological assessments per CVA protocol Seizure precautions Rec cardiac monitoring PRN Ativan for breakthrough seizures Keppra 1000 mg loading dose then Keppra 500 mg twice a day; transition to by mouth Keppra when appropriate -It is unclear at this juncture this is true seizure etiology or nonepileptic events. He has recently had a workup with Dr. Cardoso including MRI of the brain and EEG which were both negative. -However, we will go ahead and start antiepileptic drugs as the patient is having recurrent seizure events Neurology will continue to follow; further recommendations pending w/u History of Present Illness Chief complaint: Seizures HPI: Mr. Farias is a 74 year old male with a PMH of cancer, CAD, DM, GERD, HLD, HTN, [place], hypothyroidism, TIAs and seizures. Presents from an [facility] with concerns for seizures. He has had similar episodes recently dating back to March 2019 where he presented with an unresponsive state and seizure-like activity. MRI at that time was unremarkable. Currently, the patient is drowsy responding to verbal stimulus but is unable to provide any history of present illness. His at the bedside and reports this morning he was having staring spells and was not answering her when she was speaking to him. She is also noticing a left facial droop drooping along the left eye. She brought to the ED for further evaluation. While in the ED he began to have tonic clonic seizure activity and he has been postictal since. Again, he has had spells like this in the past with negative MRI and negative EEG. He is currently not on any antiepileptic drugs. He had CT is not obtained showing no acute intracranial abnormality. A small right mastoid effusion with air-fluid level may be seen with mastoiditis in the appropriate clinical scenario. He had a stable chest x-ray. He is hemodynamically stable and there are no metabolic derangements noted on his chemistry panel. He is being admitted for further evaluation of seizures. Past Med Surg Social Fam HX - Past Medical History Medical history: cancer, coronary artery disease, diabetes, GERD, hyperlipidemia, hypertension, myocardial infarction, seizures, thyroid disease, TIA, other Additional medical history: thrombocytopenia, CHF, parkinsons, lung nodules Psychiatric history: no psych history - Past Surgical History Surgical History: cholecystectomy Additional surgical history: left kidney removed, triple bypass, skin lesions, carpal tunnel, cardiac stents x 7 - Social History Smoking Status: Former smoker Smokeless Tobacco Status: No Alcohol use: none Drug use: none - Additional Family History Additional family history: Patient is drowsy; unable to obtain family history Medications and Allergies Atorvastatin Calcium [Lipitor] 80 mg PO DAILY 01/01/18 [History] Cholecalciferol (Vitamin D3) [Vitamin D3] 50,000 unit PO SA 01/01/18 [History] Docusate [Colace] 100 mg PO DAILY 01/01/18 [History] Finasteride [Proscar] 5 mg PO DAILY 01/01/18 [History] Hydralazine HCl 50 mg PO TID 01/01/18 [History] Nitroglycerin [Nitrostat] 0.4 mg SL AD PRN 01/01/18 [History] Isosorbide MONOnitrate [Isosorbide Mononitrate ER] 120 mg PO BID 12/27/18 [History] Levothyroxine Sodium 100 mcg PO DAILY 12/27/18 [History] Linagliptin [Tradjenta] 5 mg PO DAILY 12/27/18 [History] Ranolazine [Ranexa] 1,000 mg PO BID 12/27/18 [History] Sennosides [Senna] 8.6 mg PO BID 12/27/18 [History] Aspirin Enteric Coated [Aspirin EC] 81 mg PO DAILY #60 tablet. 12/29/18 [Rx] Mirtazapine [Remeron] 7.5 mg PO HS 02/20/19 [History] Calcitriol [Rocaltrol] 0.25 mcg PO DAILY 06/04/19 [History] [place]-3/Dha/Epa/Fish Oil [Fish Oil 1,000 mg Softgel] 1 each PO DAILY 06/04/19 [History] Pantoprazole Sodium [Protonix] 40 mg PO HS 06/04/19 [History] Sertraline [Zoloft] 50 mg PO DAILY 06/04/19 [History] Allergy/AdvReac Type Severity Reaction Status Date / Time latex Allergy Rash Verified 06/04/19 10:43 All Systems: The remainder of the systems were reviewed and are negative Review of Systems: REVIEW OF SYSTEMS GENERAL: Negative for any nausea, vomiting, fevers, chills NEUROLOGIC: Negative for any blurry vision, blind spots, double vision, dyspha charisse, dysarthria, hemiparesis, hemisensory deficits, vertigo, ataxia, paralysis, tingling, numbness, unilateral weakness or numbness/tingling POSITIVE-left facial droop; droop of left eye and mouth specifically. reporting tonic clonic activity this morning. She is also reporting noticing staring spells. PSYCH: NEGATIVE-agitation/irritability, delirium HEENT: Negative for any head trauma, neck trauma, neck stiffness Physical Examination - Vital Signs Vital Signs: Initial Vital Signs Temp Pulse Resp BP Pulse Ox 98.3 F 64 16 147/74 100 06/04/19 13:41 06/04/19 13:41 06/04/19 13:41 06/04/19 13:41 06/04/19 13:41 - Exam Exam: Examination: Neurological exam is completely negative by patient's mental state General Examination: *CONSTITUTIONAL: Drowsy but arousable to verbal stimulus. Disoriented otherwise *GENERAL APPEARANCE OF PATIENT generally ill-appearing elderly male *EYES: pupils equal, round, reactive to light and accommodation, conjunctiva clear without masses or ulcerations, fundi normal. *CARDIOVASCULAR: no peripheral edema, distal temperature normal, dorsalis pedis pulses normal. Refer to vital signs * MUSCULOSKELETAL: *GAIT AND STATION: Deferred *ASSESSMENT OF MUSCLE STRENGTH IN THE UPPER AND LOWER EXTREMITIES moves all 4 extremities spontaneously but is unable to cooperate with exam given his altered mental state. *MUSCLE TONE IN THE UPPER AND LOWER EXTREMITIES normal. No abnormal movements, fasciculations or atrophy identified. Neurological: *ORIENTATION disoriented *ATTENTION AND CONCENTRATION are abnormal and he appears to be in a postictal state *CN II optic fundi were normal, no papilledema noted. *CN III,IV, PERRLA, no doll's eyes. Ptosis of the left eye *CN VII appears to have some droop along left mouth *REFLEXES: deep tendon reflexes were normal and symmetrical in bilateral biceps, triceps and brachioradialis grade 2/4. Absent bilateral patellar and Achilles reflexes. no pathological reflexes were noted Results - Diagnostic Findings Additional findings: CT/CT head/brain wo con IMPRESSION: No acute intracranial abnormality. Small right mastoid effusion with air-fluid level may be seen with mastoiditis in the appropriate clinical scenario. Clinical correlation recommended. Consult Discharge Plan - Plan Referrals: Sameer Frank, VISITOR SERVICES REPRESENTATIVE [Primary Care Provider] - (This office will not let us make follow up appointments until we have a discharge order) <Philippe Sprague - Last Filed: 06/04/19 17:11> Date of Encounter: 06/04/19 Assessment and Plan (1) Seizure Current Visit: Yes Status: Acute I have personally performed a [id number] assessment of the patient and have reviewed the PA/DISTRICT MANAGER MAJOR ACCOUNTS SALES note. My impressions are as follows: As stated above, patient has had episodes of altered mental status and sensorium that could possibly be secondary to seizure activity. However may also be due to nonepileptic seizures or some other nonneurologic etiologies. In any regard MRI scan of the brain has been completed and only reveals mild age-related changes. Does not rest reveal a specific etiology to explain seizure activity. EEG is yet pending. I agree with starting Keppra 1000 mg load, and we will maintain at 500 mg twice a day. Continued neuro checks. Further recommendations will be made pending clinical observation overnight and the result of the EEG. History of Present Illness HPI: The chart was reviewed, the patient was seen and examined independently. The c ase was discussed with the VISITOR SERVICES REPRESENTATIVE. I agree with his assessment of the history of present illness as outlined above. All Systems: The remainder of the systems were reviewed and are negative Review of Systems: The balance of the systems review is negative. Physical Examination - Vital Signs Vital Signs: Initial Vital Signs Temp Pulse Resp BP Pulse Ox 98.3 F 64 16 147/74 100 06/04/19 13:41 06/04/19 13:41 06/04/19 13:41 06/04/19 13:41 06/04/19 13:41 - Exam Exam: I have personally performed a [id number]-[id number] assessment of the patient and have reviewed the PA/DISTRICT MANAGER MAJOR ACCOUNTS SALES note. My impressions are as follows: The chart was reviewed, the patient was seen and examined independently. Case was discussed with the VISITOR SERVICES REPRESENTATIVE. I concur with the neurologic examination as documented above. Results - Laboratory Findings Abnormal lab findings: Abnormal lab results POC Glucose 156 mg/dL (70-99) H 06/04/19 13:43 Lactic Acid 2.4 mmol/L (0.5-2.2) H 06/04/19 14:51
[2019-06-04] MEDS ORDERED: *HR* LORazepam 2 MG/ML VIAL IVP PRN (14:57)
[2019-06-04] MEDS: hydrALAZINE 25 MG TABLET PO SCH ×2 (16:53→21:14)
[2019-06-04] MEDS: 0.9 % Sodium Chloride 1,000 ML IVC SCH (17:00)
[2019-06-04] MEDS ORDERED: 0.9 % Sodium Chloride 1,000 ML ONE (17:23)
[2019-06-04] MEDS: Isosorbide MONOnitrate (24 HR) 60 MG TAB.ER.24H PO SCH (21:14)
[2019-06-04] MEDS: Ranolazine 500 MG TAB.ER.12H PO SCH (21:14)
[2019-06-04] MEDS: Sennosides 8.6 MG TABLET PO SCH (21:14)
[2019-06-05 04:59] LABS: Basophils % 0.2 %; Hemoglobin 9.3 g/dL (12.9-16.9)
[2019-06-05 05:01] LABS: Eosinophils # 0.1 K/mcL (0.0-0.6); Eosinophils % 2.3 %; Hematocrit 28.2 % (37.5-50.1); Immature Granulocytes % 0.2 % (0-4); Immature Platelets 2.6 % (1.1-6.1); Lymphocytes # 1.3 K/mcL (0.6-4.6); Lymphocytes % 29.1 %; Mean Corpuscular Hemoglobin 29.2 pg (28.0-33.3); Mean Corpuscular Volume 88.4 fL (83.0-100.0); Mean Platelet Volume 10.3 fL (9.4-12.4); Monocytes # 0.4 K/mcL (0.0-1.3); Monocytes % 9.6 %; Neutrophils # 2.6 K/mcL (1.6-8.9); Red Blood Count 3.19 M/mcL (4.19-5.50); Red Cell Distribution Width 15.7 % (11.5-14.5); Segmented Neutrophils % 58.6 %; White Blood Count 4.4 K/mcL (4.3-11.1)
[2019-06-05 05:04] LABS: Platelet Count 91 K/mcL (140-400)
[2019-06-05 05:16] LABS: Calcium 8.3 mg/dL (8.6-10.3); Magnesium 1.7 mg/dL (1.6-2.6); Phosphorous 2.5 mg/dL (2.7-4.5); Potassium 4.1 mEq/L (3.5-5.1)
[2019-06-05] MEDS: 0.9 % Sodium Chloride 1,000 ML IVC SCH (06:48)
[2019-06-05] MEDS: Sennosides 8.6 MG TABLET PO SCH (07:26)
[2019-06-05] MEDS: Ranolazine 500 MG TAB.ER.12H PO SCH (07:27)
[2019-06-05] MEDS: hydrALAZINE 25 MG TABLET PO SCH ×2 (07:28→15:30)
[2019-06-05] MEDS: Isosorbide MONOnitrate (24 HR) 60 MG TAB.ER.24H PO SCH (07:28)
[2019-06-05] MEDS ORDERED: Finasteride 5 MG TABLET PO SCH (09:00)
[2019-06-05] MEDS ORDERED: Mirtazapine 15 MG TABLET PO SCH (09:00)
[2019-06-05] MEDS ORDERED: Cholecalciferol (D-3) 1,000 UNIT (25MCG) TABLET PO SCH (09:00)
[2019-06-05] MEDS ORDERED: Aspirin Enteric Coated 81 MG Tablet PO SCH (09:00)
--- NOTE | 2019-06-05 11:03 | Neurology Progress Note ---
<Tyrell Perez J - Last Filed: 06/05/19 11:00> Date of Encounter: 06/05/19 Time of Encounter: 11:00 Assessment and Plan (1) Seizures Status: Acute Seen in f/u for seizures no return of seizure activity since admission Was given keppra 1000mg loading dose yesterday and then 500mg BID; transition to PO when appropriate C/W seizure precautions and PRN ativan F/u with Primary neurologist Dr. Marie at d/c MRI brain with no acute findings EEG pending Patient was asked not to drive until seizure-free for 6 months. Patient was asked not to work in close proximity of machines with moving parts, not to swim unsupervised, not to take tub baths or showers with water accumulation, and not to work at high places. Continue medical and supportive care Subjective Principal diagnosis: seizures Interval history: The chart was reviewed and the patient was seen and examined at the bedside. He is being seen in f/u for suspected seizures. He denies any seizures events overnight and denies any development of neurological deficits overnight. He remains stable. He has just undergone EEG and the results are pending. I discussed MRI findings with the patient and revealed that there are no evidence of acute intrancranial abnormalities. Stable mile chronic small vessel ischemic disease within the periventricular white matter with associate mild cerebral atrophy. He verbalized understanding of our discussion and denies any further questions. Objective - Constitutional Vitals: Temp Pulse Resp BP Pulse Ox 98.2 F 61 18 129/62 99 06/05/19 07:20 06/05/19 07:20 06/05/19 07:20 06/05/19 07:20 06/05/19 07:20 Exam: Examination: General Examination: *CONSTITUTIONAL: Alert and oriented x3, no acute distress *GENERAL APPEARANCE OF PATIENT Elderly male who overall appears healthy and well groomed *EYES: pupils equal, round, reactive to light and accommodation, conjunctiva clear without masses or ulcerations, fundi normal. *CARDIOVASCULAR:no peripheral edema, distal temperature normal, dorsalis pedis pulses normal. Refer to vital signs * MUSCULOSKELETAL: *GAIT AND STATION: Deferred *ASSESSMENT OF MUSCLE STRENGTH IN THE UPPER AND LOWER EXTREMITIES bilateral deltoid, bicep, tricep, boring machine operator horizontal strength, hip flexors ,anterior tibialis, dorsoflexion of the foot 4/5 *MUSCLE TONE IN THE UPPER AND LOWER EXTREMITIES normal. No abnormal movements, fasciculations or atrophy identified. Neurological: *ORIENTATION to person, situation, time and place *LANGUAGE AND FUNCTION no significant aphasia or dysarthia was noted. *ATTENTION AND CONCENTRATION are normal *LANGUAGE FUNCTION no significant aphasia or dysarthia was noted. *FUND OF KNOWLEDGE aware of current events, past history, vocabulary *MENTAL attention span and concentration normal. *CN II optic fundi were normal, no papilledema noted. *CN III,IV, PERRLA extraocular eye movements were full, no nystagmus and no ptosis noted. *CN V shows normal sensation and jaw opens symmetrically. *CN VII shows normal facial movement symmetrically, upper and lower bilaterally. *CN VIII shows no significant hearing loss on exam *CN IX-X palate elevated symmetrically *CN XI normal strength in the sternocleidomastoid muscles, symmetrical shoulder shrugging. *CN XII tongue protruded in the midline, with normal strength and movement. *SENSORY EXAMINATION light touch intact *REFLEXES: deep tendon reflexes were normal and symmetrical , grade 1/4 diffusely, no pathological reflexes were noted. *CEREBELLAR TESTING normal finger to nose *PAIN LEVEL 0/10 Results - Laboratory Findings CBC and BMP: 06/05/19 04:19 06/05/19 04:19 Abnormal lab findings: Abnormal lab results RBC 3.19 M/mcL (4.19-5.50) L 06/05/19 04:19 Hgb 9.3 g/dL (12.9-16.9) L D 06/05/19 04:19 Hct 28.2 % (37.5-50.1) L 06/05/19 04:19 RDW 15.7 % (11.5-14.5) H 06/05/19 04:19 Plt Count 91 K/mcL (140-400) L 06/05/19 04:19 Sodium 135 mEq/L (136-145) L 06/05/19 04:19 Carbon Dioxide 22 mEq/L (23-29) L 06/05/19 04:19 Creatinine 1.73 mg/dL (0.70-1.30) H 06/05/19 04:19 Est GFR ( Amer) 47 (> 60) L 06/05/19 04:19 Est GFR (Non-Af Amer) 39 (> 60) L 06/05/19 04:19 Glucose 107 mg/dL (70-105) H 06/05/19 04:19 POC Glucose 135 mg/dL (70-99) H 06/04/19 17:01 Lactic Acid 2.4 mmol/L (0.5-2.2) H 06/04/19 14:51 Calcium 8.3 mg/dL (8.6-10.3) L 06/05/19 04:19 Phosphorus 2.5 mg/dL (2.7-4.5) L 06/05/19 04:19 Consult Discharge Plan - Plan Referrals: Sameer Frank, BENCH PRESS OPERATOR [Primary Care Provider] - 06/12/19 8:20 am (This office will not let us make follow up appointments until we have a discharge order) Prescriptions: levETIRAcetam [Keppra] 500 mg PO Q12HR 30 Days #120 tablet <CelestinePhilippe Stein - Last Filed: 06/05/19 16:28> Date of Encounter: 06/05/19 Assessment and Plan (1) Seizures Status: Acute I have personally performed a [id number] assessment of the patient and have reviewed the PA/MASTER COASTWISE YACHT note. My impressions are as follows: The chart was reviewed, the patient was seen and examined independently. Case was discussed with the BENCH PRESS OPERATOR. I agree with his assessment and plan as stated above. Patient will maintain Keppra 500 mg twice a day and will follow-up with his primary neurologist upon discharge. EEG was normal. Driving issues were discussed as above, as were seizure precautions. Time spent with patient today was 15 minutes of which greater than 50% of that time spent in [id number] contact which consisted of counseling and coordinating care. Subjective Interval history: The chart was reviewed, the patient was seen and examined. Case was discussed with the BENCH PRESS OPERATOR. Patient today seems to be back to his baseline status. He does not recall much of the events of yesterday. He is not recall meeting me. His EEG study was completely normal. MRI scan of the brain revealed mild chronic white matter changes. Objective - Constitutional Vitals: Temp Pulse Resp BP Pulse Ox 97.9 F 64 16 132/64 97 06/05/19 12:00 06/05/19 12:00 06/05/19 12:00 06/05/19 12:00 06/05/19 12:00 Exam: I have personally performed a [id number] assessment of the patient and have reviewed the PA/MASTER COASTWISE YACHT note. My impressions are as follows: I agree with the neurologic examination is documented above. Results - Laboratory Findings CBC and BMP: 06/05/19 04:19 06/05/19 04:19 Abnormal lab findings: Abnormal lab results RBC 3.19 M/mcL (4.19-5.50) L 06/05/19 04:19 Hgb 9.3 g/dL (12.9-16.9) L D 06/05/19 04:19 Hct 28.2 % (37.5-50.1) L 06/05/19 04:19 RDW 15.7 % (11.5-14.5) H 06/05/19 04:19 Plt Count 91 K/mcL (140-400) L 06/05/19 04:19 Sodium 135 mEq/L (136-145) L 06/05/19 04:19 Carbon Dioxide 22 mEq/L (23-29) L 06/05/19 04:19 Creatinine 1.73 mg/dL (0.70-1.30) H 06/05/19 04:19 Est GFR ( Amer) 47 (> 60) L 06/05/19 04:19 Est GFR (Non-Af Amer) 39 (> 60) L 06/05/19 04:19 Glucose 107 mg/dL (70-105) H 06/05/19 04:19 POC Glucose 135 mg/dL (70-99) H 06/04/19 17:01 Lactic Acid 2.4 mmol/L (0.5-2.2) H 06/04/19 14:51 Calcium 8.3 mg/dL (8.6-10.3) L 06/05/19 04:19 Phosphorus 2.5 mg/dL (2.7-4.5) L 06/05/19 04:19
[2019-06-05 12:30] VITALS: BP 132/64
--- NOTE | 2019-06-05 14:28 | Discharge Summary ---
Date of Encounter: 06/05/19 Time of Encounter: 14:00 - Discharge Diagnosis (1) Seizure Priority: Primary Status: Inactive Assessment and Plan: 74 year old male with pmh of coronary artery disease, diabetes type 2, dyslipidemia, hypertension presenting with complaints of witnessed seizures today. Patient is extremely lethargic on assessment but protecting his airways. He is not able to provide any history but is arousable and follows commands. Spoke with ER at [place], per his , patient was having staring spells this am and was not responding when she spoke with him and she also noted a new left sided facial droop and that's why she took him to the ER. ER physician reports he had two episode of jerky movements suspicious for seizure activity that lasted about 30 secndas. No antiepileptic meds wee adinistered. EMS reports he also had an other episode of seizure like activity en route to the hospital. He had a CT head at [place] showing no acute abnormalities. He was assessed with multiple witnessed episodes of seizure like activity with jerky movements and postictal state. He was loaded with IV keppra and improved. He was seen by neuro and had an EEG completed showing no acute seizures. Nevertheless, he will be discharged on po keppra and follow up with neurology as an outpatient (2) Lactic acidosis Priority: Primary Status: Acute (3) CAD (coronary artery disease) Priority: Primary Status: Chronic Qualifiers: Coronary Disease-Associated Artery/Lesion type: bypass graft, autologous vein Associated angina: without angina Qualified Code(s): I25.810 - Atherosclerosis of coronary artery bypass graft(s) without angina pectoris (4) Diabetes Priority: Primary Status: Chronic Qualifiers: Diabetes mellitus type: type 2 Diabetes mellitus terminal gauger supervisor insulin use: without [facility] use Diabetes mellitus complication status: without complication Qualified Code(s): E11.9 - Type 2 diabetes mellitus without complications (5) Hypothyroidism (acquired) Priority: Primary Status: Chronic (6) CKD (chronic kidney disease) stage 3, GFR 30-59 ml/min Priority: Primary Status: Chronic (7) DVT prophylaxis Priority: Primary Status: Acute Hospital course: Mr. Farias is a 74 year old male - Time Spent with Patient Total time spent providing and/or coordinating discharge services: - Discharge Medications Prescriptions: New levETIRAcetam [Keppra] 500 mg PO Q12HR 30 Days #120 tablet Continued Isosorbide MONOnitrate [Isosorbide Mononitrate ER] 120 mg PO BID Levothyroxine Sodium 100 mcg PO DAILY Linagliptin [Tradjenta] 5 mg PO DAILY Ranolazine [Ranexa] 1,000 mg PO BID Sennosides [Senna] 8.6 mg PO BID Aspirin Enteric Coated [Aspirin EC] 81 mg PO DAILY #60 tablet. Mirtazapine [Remeron] 7.5 mg PO HS Calcitriol [Rocaltrol] 0.25 mcg PO DAILY Nitroglycerin [Nitrostat] 0.4 mg SL AD PRN PRN Reason: Chest Pain Cholecalciferol (Vitamin D3) [Vitamin D3] 50,000 unit PO SA Atorvastatin Calcium [Lipitor] 80 mg PO DAILY Hydralazine HCl 50 mg PO TID Finasteride [Proscar] 5 mg PO DAILY Docusate [Colace] 100 mg PO DAILY Sertraline [Zoloft] 50 mg PO DAILY Pantoprazole Sodium [Protonix] 40 mg PO HS [place]-3/Dha/Epa/Fish Oil [Fish Oil 1,000 mg Softgel] 1 each PO DAILY Home Medications: Atorvastatin Calcium [Lipitor] 80 mg PO DAILY 01/01/18 [History] Cholecalciferol (Vitamin D3) [Vitamin D3] 50,000 unit PO SA 01/01/18 [History] Docusate [Colace] 100 mg PO DAILY 01/01/18 [History] Finasteride [Proscar] 5 mg PO DAILY 01/01/18 [History] Hydralazine HCl 50 mg PO TID 01/01/18 [History] Nitroglycerin [Nitrostat] 0.4 mg SL AD PRN 01/01/18 [History] Isosorbide MONOnitrate [Isosorbide Mononitrate ER] 120 mg PO BID 12/27/18 [History] Levothyroxine Sodium 100 mcg PO DAILY 12/27/18 [History] Linagliptin [Tradjenta] 5 mg PO DAILY 12/27/18 [History] Ranolazine [Ranexa] 1,000 mg PO BID 12/27/18 [History] Sennosides [Senna] 8.6 mg PO BID 12/27/18 [History] Aspirin Enteric Coated [Aspirin EC] 81 mg PO DAILY #60 tablet. 12/29/18 [Rx] Mirtazapine [Remeron] 7.5 mg PO HS 02/20/19 [History] Calcitriol [Rocaltrol] 0.25 mcg PO DAILY 06/04/19 [History] [place]-3/Dha/Epa/Fish Oil [Fish Oil 1,000 mg Softgel] 1 each PO DAILY 06/04/19 [History] Pantoprazole Sodium [Protonix] 40 mg PO HS 06/04/19 [History] Sertraline [Zoloft] 50 mg PO DAILY 06/04/19 [History] levETIRAcetam [Keppra] 500 mg PO Q12HR 30 Days #120 tablet 06/05/19 [Rx] Allergies/Adverse Reactions: Allergy/AdvReac Type Severity Reaction Status Date / Time latex Allergy Rash Verified 06/04/19 10:43 Date of admission: 06/04/19 13:17 Primary care physician: Sameer Frank CNP Consults: 06/04/19 13:37 Consult to Neurology [CONS] Routine Consulting Provider: Neurology [facility] Reason for Consult: witnessed seizures Call Completed: Yes 06/05/19 10:44 Consult to Interpret Exam [CONS] Routine Consulting Provider: Philippe Sprague Consult to Interpret Exam: Interpret EEG - Constitutional Vitals: Temp Pulse Resp BP Pulse Ox 97.9 F 64 16 132/64 97 06/05/19 12:00 06/05/19 12:00 06/05/19 12:00 06/05/19 12:00 06/05/19 12:00 Exam: Awake, alert - Head Head exam: Present: atraumatic, normocephalic - Eye Eye exam: Present: PERRL, conjuntiva pink, sclera anicteric Pupils: Present: PERRL - Neck Neck exam general surgery: Present: supple, trachea midline. Absent: lymphadenopathy - Respiratory Respiratory exam: Present: CTAB. Absent: accessory muscle use, rales, rhonchi, wheezes - Cardiovascular Cardiovascular exam: Present: RRR, +S1, +S2. Absent: diastolic murmur, gallop, rubs, systolic murmur - GI/Abdominal GI/Abdominal exam: Present: normal bowel sounds, soft, no peritoneal signs. Absent: distended, tenderness - Extremities Exam Extremities exam: Present: warm, radial pulses palpable and symmetrical. Absent: calf tenderness, cyanotic, pedal edema - Neurological Exam Neurological exam: Present: CN II-XII intact, oriented X3, no focal deficits. Absent: pronater drift, facial droop, speech deficit - Skin Skin exam: Present: dry, intact - Patient Status Disposition: Home, Self-Care Condition: Good - Discharge Instructions Follow Up With: Sameer Frank CNP [Primary Care Provider] - 06/12/19 8:20 am (This office will not let us make follow up appointments until we have a discharge order)
--- NOTE | 2019-06-05 14:49 | EEG/EMG/Oth Biometrics Report ---
EEG Procedure Report Date of procedure: 06/05/19 EEG Procedure: Routine EEG Procedure Note: This is a report of a 21 channel bipolar and referential montage EEG. A posterior dominant rhythm of 8-10 Hz moderate voltage alpha frequency is identified symmetrically in the posterior head regions. This rhythm attenuates symmetrically with eye opening. Hyperventilation is not performed during the recording. Periods of drowsiness and stage II sleep are identified as referenced by dropout of posterior dominant rhythm and emergence of vertex activity K complexes and sleep spindles. Photic stimulation is performed and does not produce a driving response. The EKG rhythm strip reveals normal sinus rhythm at 60 bpm. Impressions: This EEG recording is within normal limits. There is no evidence of epileptiform activity identified during the recording. Comment: A normal EEG does not preclude a diagnosis of seizure or epilepsy. If the clinical suspicion for seizure activity is high, serial EEGs or perhaps a prolonged recording may increase the yield. Please correlate clinically.
[2019-06-05] MEDS ORDERED: *HR* Heparin 5,000 UNIT/ML VIAL SQ SCH (22:00)
== END 2019-06-05 16:18 | disposition home or self-care (01) ==
LOC: 2NNU
PROVIDERS: ADMIT Internal Medicine; ATTEND Internal Medicine

== ENCOUNTER 2020-07-09 14:47 | Inpatient (IN) ==
[2020-07-09] MEDS ORDERED: *HR* Promethazine 25 MG/ML VIAL IVP PRN (17:38)
[2020-07-09] MEDS ORDERED: *HR* Heparin 5,000 UNIT/ML VIAL IVP PRN ×2 (17:38)
[2020-07-09] MEDS ORDERED: *HR* Heparin 5,000 UNIT/ML VIAL IVP ONE (17:38)
[2020-07-09] MEDS ORDERED: Acetaminophen 325 MG TABLET PO PRN (17:38)
[2020-07-09] MEDS ORDERED: Ringers Solution, Lactated 1,000 ML IVC ONE (17:43)
[2020-07-09] MEDS ORDERED: Nitroglycerin 0.4 MG TAB.SUBL SL PRN (17:45)
[2020-07-09] MEDS ORDERED: Heparin 25,000UNIT/250ML 1/2NS 25,000 UNIT/250 ML IV.SOLN IVC SCH (17:45)
[2020-07-09] MEDS ORDERED: *HR* Dextrose 50 % in Water (Vial) 50 ML VIAL IVP PRN (17:46)
[2020-07-09] MEDS ORDERED: D5% in Water 1,000 ML IVC PRN (17:46)
[2020-07-09] MEDS ORDERED: Dextrose Gel 15 GM/37.5 ML TUBE PO PRN ×2 (17:46)
[2020-07-09] MEDS: cefTRIAXone 2,000 MG in Water for inj. (sterile) 20 ML IVP SCH (18:28)
[2020-07-09] MEDS: Azithromycin 500 MG in 0.9 % Sodium Chloride 250 ML IVPB SCH (18:28)
[2020-07-09] MEDS: Insulin LISPRO 300 UNITS/3 ML VIAL SQ SCH ×2 (18:43→20:03)
[2020-07-09 19:13] LABS: Red Cell Distribution Width 16.4 % (11.5-14.5)
[2020-07-09 19:15] LABS: Hematocrit 30.6 % (37.5-50.1); Hemoglobin 9.9 g/dL (12.9-16.9); Immature Platelets 3.8 % (1.1-6.1); Mean Corpuscular HGB Conc 32.4 g/dL (31.6-35.5); Mean Corpuscular Hemoglobin 29.1 pg (28.0-33.3); Mean Platelet Volume 10.5 fL (9.4-12.4); Red Blood Count 3.4 M/mcL (4.19-5.50)
[2020-07-09 19:17] LABS: Heparin anti-factor XA UFH 0.95 IU/mL (0.30-0.70); INR 1.2; Prothrombin Time 13.9 Seconds (9.4-12.1)
[2020-07-09 19:30] LABS: Calcium 8.1 mg/dL (8.6-10.3); Chol/HDL Ratio 3.7 (0-4.9); Magnesium 1.6 mg/dL (1.6-2.6); Potassium 3.9 mEq/L (3.5-5.1)
[2020-07-09 19:34] LABS: Troponin I 0.08 ng/mL (< 0.04)
[2020-07-10] MEDS ORDERED: Perflutren Lipid Microsphere 1.3 ML in 0.9 % Sodium Chloride 8.7 ML IVP PRN (08:19)
[2020-07-10] MEDS: Insulin LISPRO 300 UNITS/3 ML VIAL SQ SCH ×4 (08:45→21:10)
[2020-07-10] MEDS: Aspirin 81 MG TAB.CHEW PO SCH (08:55)
[2020-07-10] MEDS: Ranolazine 500 MG TAB.ER.12H PO SCH ×2 (12:06→21:52)
[2020-07-10] MEDS: amLODIPine 5 MG TABLET PO SCH (12:07)
[2020-07-10 12:11] LABS: Heparin anti-factor XA UFH 0.54 IU/mL (0.30-0.70); INR 1.1; Prothrombin Time 12.5 Seconds (9.4-12.1)
[2020-07-10 12:14] LABS: Activated Partial Thrombo Time 93.9 Seconds (26.0-36.0)
[2020-07-10] MEDS: *HR* Heparin 5,000 UNIT/ML VIAL SQ SCH ×2 (13:42→21:53)
[2020-07-10] MEDS: cefTRIAXone 2,000 MG in Water for inj. (sterile) 20 ML IVP SCH (17:02)
[2020-07-10] MEDS: Azithromycin 500 MG in 0.9 % Sodium Chloride 250 ML IVPB SCH (17:04)
[2020-07-10] MEDS: Isosorbide MONOnitrate (24 HR) 60 MG TAB.ER.24H PO SCH (21:52)
[2020-07-11 04:16] LABS: Mean Platelet Volume 10.2 fL (9.4-12.4); Red Cell Distribution Width 15.9 % (11.5-14.5)
[2020-07-11 04:18] LABS: Hematocrit 31.5 % (37.5-50.1); Hemoglobin 10.3 g/dL (12.9-16.9); Mean Corpuscular HGB Conc 32.7 g/dL (31.6-35.5); Mean Corpuscular Hemoglobin 29.3 pg (28.0-33.3); Mean Corpuscular Volume 89.5 fL (83.0-100.0); Red Blood Count 3.52 M/mcL (4.19-5.50); White Blood Count 3.7 K/mcL (4.3-11.1)
[2020-07-11] MEDS: *HR* Heparin 5,000 UNIT/ML VIAL SQ SCH (04:22)
[2020-07-11 04:32] LABS: Calcium 8.7 mg/dL (8.6-10.3); Potassium 4.1 mEq/L (3.5-5.1)
[2020-07-11 07:06] VITALS: BP 138/73
[2020-07-11] MEDS: Insulin LISPRO 300 UNITS/3 ML VIAL SQ SCH (07:21)
[2020-07-11] MEDS: Isosorbide MONOnitrate (24 HR) 60 MG TAB.ER.24H PO SCH (07:57)
[2020-07-11] MEDS: Ranolazine 500 MG TAB.ER.12H PO SCH (07:57)
[2020-07-11] MEDS: Aspirin 81 MG TAB.CHEW PO SCH (07:57)
[2020-07-11] MEDS: amLODIPine 5 MG TABLET PO SCH (07:58)
[2020-07-12] MEDS ORDERED: calcitrioL 0.25 MCG CAPSULE PO SCH (06:00)
[2020-07-12] MEDS ORDERED: Finasteride 5 MG TABLET PO SCH (08:00)
== END 2020-07-11 12:47 | disposition home or self-care (01) | DRG 193 ==
LOC: 3BNU
PROVIDERS: ADMIT Pharmacist; ATTEND Pharmacist